=== PATIENT | male | born 1960 | race Caucasian/White ===

== ENCOUNTER 2023-04-01 11:41 | Outpatient (REF) | payer MEDICAID, SELFPAY ==
[2023-04-01 14:28] LABS: Abs Immature Grans 0.01 10^3/uL (0.0-0.06); Absolute Basophil Count 0.03 10^3/uL (0.0-0.2); Absolute Eosinophil Count 0.24 10^3/uL (0.0-0.7); Absolute Lymphocyte Count 1.23 10^3/uL (1.2-3.4); Absolute Monocyte Count 0.41 10^3/uL (0.1-0.8); Absolute Neutrophil Count 3.25 10^3/uL (1.2-6.7); Basophils % 0.6; Eosinophils % 4.6; HCT 44.3 % (40.0-50.0); HGB 15.2 g/dL (13.5-17.5); Immature Grans % 0.2; Lymphocytes % 23.8; MCH 31.5 pg (27.0-33.0); MCHC 34.3 % (32.0-36.0); MCV 92 fL (80-95); MPV 10.9 fL (8.0-11.0); Monocytes % 7.9; Neutrophils % 62.9; Platelet Count 267 10^3/uL (130-400); RBC 4.82 10^6/uL (4.36-5.78); RDW 12.3 % (11.8-14.1); RDW-SD 41.7 fL; WBC 5.17 10^3/uL (4.4-10.8)
[2023-04-01 14:59] LABS: ALT 43 U/L (16-63); AST 28 U/L (15-37); Albumin 3.8 g/dL (3.4-5.0); Alkaline Phosphatase 79 U/L (46-116); Anion Gap 10.6 mmol/L (3-11); BUN 23 mg/dL (7-18); Bilirubin, Total 0.6 mg/dL (0.2-1.0); CO2 22.4 mmol/L (21.0-32.0); CREATININE 0.8 mg/dL (0.70-1.30); Calcium 9.7 mg/dL (8.5-10.1); Calculated LDL 189 mg/dL (<100); Chloride 105 mmol/L (98-107); Cholesterol 284 mg/dL (<200); Estimated GFR 98.83 (mL/min/1.73m2); Glucose 100 mg/dL (74-106); HDL Cholesterol 52 mg/dL (40-60); Potassium 4.4 mmol/L (3.5-5.1); Sodium 138 mmol/L (136-145); TSH (W/Ref FT4) 3.12 uIU/mL (0.36-3.74); Triglyceride 216 mg/dL (<150)
[2023-04-08 14:02] LABS: Testosterone, Free 5.88 ng/dL (3.67-13.9); Testosterone, Total 195 ng/dL (240-950)
== END 2023-04-01 11:42 | disposition home or self-care (01) ==
LOC: NCHCN 11:41
PROVIDERS: PCP Family Medicine; Visit Provider Family Medicine
DX: R89.1 Abnormal level of hormones in specimens from other organs, systems and tissues (principal); R53.83 Other fatigue; Z00.00 Encounter for general adult medical examination without abnormal findings
CPT/HCPCS: 80053; 80061; 84402; 84403; 84443; 85025

== ENCOUNTER 2023-06-01 22:28 | Outpatient (REF) | payer MEDICAID, SELFPAY ==
[2023-06-01 22:17] LABS: ALT 46 U/L (16-63); AST 22 U/L (15-37)
== END 2023-06-01 22:29 | disposition home or self-care (01) ==
LOC: NCHCN 22:28
PROVIDERS: PCP Family Medicine; Visit Provider Family Medicine
DX: E78.5 Hyperlipidemia, unspecified (principal)
CPT/HCPCS: 84450; 84460

== ENCOUNTER 2024-03-30 22:47 | Outpatient (REF) | payer MEDICARE, OTHER, SELFPAY ==
[2024-03-30 15:01] LABS: Abs Immature Grans 0.02 10^3/uL (0.0-0.06); Absolute Basophil Count 0.05 10^3/uL (0.0-0.2); Absolute Eosinophil Count 0.33 10^3/uL (0.0-0.7); Absolute Lymphocyte Count 1.32 10^3/uL (1.2-3.4); Absolute Neutrophil Count 2.88 10^3/uL (1.2-6.7); Eosinophils % 6.5 %; HCT 42.3 % (40.0-50.0); Immature Grans % 0.4 %; Lymphocytes % 25.9 %; MCHC 33.1 % (32.0-36.0); MCV 94 fL (80-95); MPV 10.9 fL (8.0-11.0); Monocytes % 9.8 %; Neutrophils % 56.4 %; Platelet Count 236 10^3/uL (130-400); RBC 4.52 10^6/uL (4.36-5.78); RDW 12.9 % (11.8-14.1); RDW-SD 44.2 fL
[2024-03-30 15:35] LABS: ALT 60 U/L (16-63); AST 31 U/L (15-37); Alkaline Phosphatase 85 U/L (46-116); Anion Gap 11.6 mmol/L (3-11); BUN 17 mg/dL (7-18); Bilirubin, Total 1.57 mg/dL (0.2-1.0); CO2 24.4 mmol/L (21.0-32.0); CREATININE 0.8 mg/dL (0.70-1.30); Calcium 9.2 mg/dL (8.5-10.1); Calculated LDL 106 mg/dL (<100); Chloride 107 mmol/L (98-107); Cholesterol 187 mg/dL (<200); Estimated GFR 98.21 (mL/min/1.73m2); Glucose 92 mg/dL (74-106); HDL Cholesterol 61 mg/dL (40-60); Magnesium 2.2 mg/dL (1.8-2.4); Potassium 4.1 mmol/L (3.5-5.1); Sodium 143 mmol/L (136-145); TSH (W/Ref FT4) 2.95 uIU/mL (0.36-3.74); Total Protein 6.9 g/dL (6.4-8.2); Triglyceride 102 mg/dL (<150)
[2024-03-30 23:04] LABS: PSA, Diagnostic 4.1 ng/mL (<=4.5)
[2024-04-03 13:13] LABS: Testosterone, Free 8.15 ng/dL (3.47-13.0); Testosterone, Total 309 ng/dL (240-950)
== END 2024-03-30 22:48 | disposition home or self-care (01) ==
LOC: NCHCN 22:47
PROVIDERS: PCP Family Medicine; Visit Provider Family Medicine
DX: E78.5 Hyperlipidemia, unspecified (principal); R00.2 Palpitations; N40.0 Benign prostatic hyperplasia without lower urinary tract symptoms
CPT/HCPCS: 80053; 80061; 84402; 84403; 83735; 84153; 84443; 85025

== ENCOUNTER → 2024-04-26 07:47 | Outpatient (BNVA) | payer MEDICARE, OTHER, SELFPAY | PROVIDERS: PCP Family Medicine; Referring Provider Family Medicine; Visit Provider Urology | DX: N40.1 Benign prostatic hyperplasia with lower urinary tract symptoms (principal); N13.8 Other obstructive and reflux uropathy; N41.9 Inflammatory disease of prostate, unspecified; R79.89 Other specified abnormal findings of blood chemistry; R97.20 Elevated prostate specific antigen [PSA] | CPT/HCPCS: 51798; 99205 ==

== ENCOUNTER → 2024-10-25 09:44 | Outpatient (BNVA) | payer MEDICARE, OTHER, SELFPAY | PROVIDERS: PCP Family Medicine; Referring Provider Family Medicine; Visit Provider Urology | DX: R79.89 Other specified abnormal findings of blood chemistry (principal) | CPT/HCPCS: 99214 ==

== ENCOUNTER → 2025-02-03 07:51 | Outpatient (BNVA) | payer MEDICARE, OTHER, SELFPAY | PROVIDERS: PCP Family Medicine; Referring Provider Family Medicine; Visit Provider Urology | DX: R79.89 Other specified abnormal findings of blood chemistry (principal); R97.20 Elevated prostate specific antigen [PSA]; N13.8 Other obstructive and reflux uropathy; N40.1 Benign prostatic hyperplasia with lower urinary tract symptoms | CPT/HCPCS: 99214 ==

== ENCOUNTER 2025-04-03 13:30 | Outpatient (REF) | payer MEDICARE, OTHER, SELFPAY ==
[2025-04-03 15:37] LABS: HCT 50.8 % (40.0-50.0); HGB 16.6 g/dL (13.5-17.5); MCH 30.3 pg (27.0-33.0); MCHC 32.7 % (32.0-36.0); MCV 93 fL (80-95); MPV 11.3 fL (8.0-11.0); Platelet Count 255 10^3/uL (130-400); RBC 5.47 10^6/uL (4.36-5.78); RDW 13.6 % (11.8-14.1); RDW-SD 46.5 fL; WBC 6.34 10^3/uL (4.4-10.8)
[2025-04-03 17:07] LABS: ALT 32 U/L (10-49); AST 30 U/L (<34); Albumin 4.2 g/dL (3.4-5.0); Alkaline Phosphatase 58 U/L (46-116); Anion Gap 6.3 mmol/L (3-11); BUN 18 mg/dL (9-23); Bilirubin, Total 2.50 mg/dL (0.2-1.2); CO2 26.7 mmol/L (20.0-31.0); Calcium 9.1 mg/dL (8.3-10.6); Chloride 106 mmol/L (98-107); Cholesterol 132 mg/dL (<200); Glucose 79 mg/dL (74-106); HDL Cholesterol 48 mg/dL (>40); Potassium 4.4 mmol/L (3.5-5.1); Sodium 139 mmol/L (136-145); Total Protein 6.4 g/dL (5.7-8.2)
== END 2025-04-03 13:31 | disposition home or self-care (01) ==
LOC: NCHCN 13:30
PROVIDERS: PCP Family Medicine; Visit Provider Family Medicine
DX: E78.5 Hyperlipidemia, unspecified (principal); R13.10 Dysphagia, unspecified
CPT/HCPCS: 80053; 80061; 85027